=== PATIENT | female | born 1990 | race Two or more races ===

== ENCOUNTER 2017-10-06 13:34 | Emergency (ER) | payer SELFPAY ==
[2017-10-06] MEDS ORDERED: Ondansetron 4 MG/2 ML SDV IVPUSH ONE (14:06)
[2017-10-06] MEDS ORDERED: Sodium Chloride 0.9% 10 ML Syringe FLUSH PRN (14:06)
[2017-10-06] MEDS ORDERED: Sodium Chloride 0.9% 2.5 ML Syringe FLUSH PRN (14:06)
[2017-10-06] MEDS ORDERED: Ketorolac 30 MG/ML SDV IVPUSH ONE (14:06)
[2017-10-06] MEDS ORDERED: Sodium Chloride 0.9% 1,000 ML IV ONE (14:06)
--- NOTE | 2017-10-06 14:11 | EDM.PDOC ---
ED HPI GENERAL MEDICAL PROBLEM - General Chief Complaint: Fever Stated Complaint: FEVER,SORE THROAT AND VOMITING Time Seen by Provider: 10/06/17 13:44 - History of Present Illness INITIAL COMMENTS - FREE TEXT/NARRATIVE: HISTORY AND PHYSICAL: History of present illness: The patient is a 27-year-old female who presents with vague complaints over the last 3 days including a subjective fever last evening which responded to medications, nausea and vomiting with emesis several times yesterday and only once today, left ear pain and fullness feeling, sore throat, generalized malaise and fatigue. The patient does have any chest pain or shortness of breath and does not have any abdominal pain. Patient does say that she has had diarrhea, none today, but multiple times yesterday which was watery but not black or bloody. Patient did not take anything [id number] for the diarrhea but has had no episodes today. The patient says that she was in the [facility] visiting family for the last 1 month and returned on Tuesday and was jet lagged and tired and had to return to work Tuesday and has not had a chance to catch up with her sleep. She says that the entire time that she was on vacation she had no systemic problems or complaints and she has no ill contacts currently. Patient says she just finished her period and denies . She has no urinary complaints no skin rashes and no focal weakness or discomfort is a generalized statement. Review of systems: As per history of present illness and below otherwise all systems reviewed and negative. Past medical history: As per history of present illness and as reviewed below otherwise noncontributory. Surgical history: As per history of present illness and as reviewed below otherwise noncontributory. Social history: No reported history of drug or alcohol abuse. Family history: As per history of present illness and as reviewed below otherwise noncontributory. Physical exam: General: Well-developed well-nourished female who is nontoxic and vital signs are reviewed by me HEENT: Atraumatic, normocephalic, pupils reactive, negative for conjunctival pallor or scleral icterus, mucous membranes moist, throat clear of exudates but there is some posterior oral pharyngeal erythema without any swelling, uvula is midline, there is some anterior cervical adenopathy but no posterior adenopathy and no nuchal rigidity,, neck supple, nontender, trachea midline. TM on the right is within normal limits but the TM on the left shows small area of linear vertical perforation at the right lateral aspect approximately at 2 to 3:00. There is no debris or bleeding in the canal. There is no mastoid tenderness. Lungs: Clear to auscultation, breath sounds equal bilaterally, chest nontender. Heart: S1S2, regular rate and rhythm no overt murmurs Abdomen: Soft, nondistended, nontender. Negative for masses or hepatosplenomegaly. Negative for costovertebral tenderness. Pelvis: Stable nontender. Genitourinary: Deferred. Rectal: Deferred. Extremities: Atraumatic, negative for cords or calf pain. Neurovascular unremarkable. Neuro: Awake, alert, oriented. Cranial nerves II through XII unremarkable. Cerebellum unremarkable. Motor and sensory unremarkable throughout. Exam nonfocal. Diagnostics: CBC CMP magnesium level UA UCG rapid strep urine culture If the patient produced a stool I will send it to the lab for study Therapeutics: IV, IV fluids Zofran Toradol Patient has not produced any stool while in the ED. Patient is aware of all testing results and care plan for home including Zofran and Bentyl or her GI symptoms and amoxicillin for the perforated eardrum and pharyngitis. I stressed the need for hydration and follow-up Impression: Pharyngitis/cervical adenopathy, vomiting and diarrhea Small perforation of left tympanic membrane Definitive disposition and diagnosis as appropriate pending reevaluation and review of above. Ear Pain Score (Numeric/FACES): 9 - Related Data Allergies Allergy/AdvReac Type Severity Reaction Status Date / Time No Known Allergies Allergy Verified 10/06/17 13:48 Home Meds: Home Meds . [No Known Home Meds] 10/06/17 [History] Past Medical History - Past Health History Medical/Surgical History: Denies Medical/Surgical History Social & Family History - Family History Family Medical History: Noncontributory - Tobacco Use Smoking Status *Q: Never Smoker Second Hand Smoke Exposure: No - Caffeine Use Caffeine Use: Reports: Coffee, Soda - Recreational Drug Use Recreational Drug Use: No ED ROS GENERAL - Review of Systems Review Of Systems: ROS reveals no pertinent complaints other than HPI. ED EXAM, GENERAL - Physical Exam Exam: See Below (See dictation) Course - Vital Signs Last Recorded V/S: Last Vital Signs Temp 36.3 C 10/06/17 15:15 Pulse 62 10/06/17 15:15 Resp 14 10/06/17 15:15 BP 103/56 L 10/06/17 15:15 Pulse Ox 99 10/06/17 15:15 - Orders/Labs/Meds Orders: Active Orders 24 hr Category Date Time Status Communication Order [RC] STAT Care 10/06/17 14:05 Active CULTURE STREP A CONFIRMATION [RM] Stat Lab 10/06/17 14:20 Results CULTURE URINE [] Stat Lab 10/06/17 16:03 Ordered HCG QUALITATIVE,URINE [URCHEM] Stat Lab 10/06/17 15:27 Ordered STREP SCRN A RAPID W CULT CONF [RM] Stat Lab 10/06/17 14:20 Ordered UA W/MICROSCOPIC [URIN] Stat Lab 10/06/17 15:27 Ordered Sodium Chloride 0.9% [Saline Flush] Med 10/06/17 14:06 Active 10 ml FLUSH ASDIRECTED PRN Sodium Chloride 0.9% [Saline Flush] Med 10/06/17 14:06 Active 2.5 ml FLUSH ASDIRECTED PRN Saline Lock Insert [OM.PC] Stat Oth 10/06/17 14:03 Ordered Medication Orders Sodium Chloride (Saline Flush) 10 ml FLUSH ASDIRECTED PRN PRN Reason: Keep Vein Open Last Admin: 10/06/17 14:29 Dose: 10 ml Sodium Chloride (Saline Flush) 2.5 ml FLUSH ASDIRECTED PRN PRN Reason: Keep Vein Open Last Admin: 10/06/17 14:29 Dose: 2.5 ml Labs: Laboratory Tests 10/06/17 10/06/17 10/06/17 Range/Units 14:18 14:18 15:27 WBC 5.54 (4.0-11.0) K/uL RBC 4.86 (4.30-5.90) M/uL Hgb 12.9 (12.0-16.0) g/dL Hct 38.5 (36.0-46.0) % MCV 79.2 L (80.0-98.0) fL MCH 26.5 L (27.0-32.0) pg MCHC 33.5 (31.0-37.0) g/dL RDW Std Deviation 40.0 (28.0-62.0) fl RDW Coeff of Kaveh 14 (11.0-15.0) % Plt Count 263 (150-400) K/uL MPV 9.00 (7.40-12.00) fL Add Manual Diff YES Neutrophils % (Manual) 59 (48.0-80.0) % Lymphocytes % (Manual) 24 (16.0-40.0) % Monocytes % (Manual) 11 (0.0-15.0) % Eosinophils % (Manual) 5 (0.0-7.0) % Basophils % (Manual) 1 (0.0-1.5) % Nucleated RBC % 0.0 /100WBC Absolute Seg Neuts 3.3 (1.4-5.7) Lymphocytes # (Manual) 1.3 (0.6-2.4) Monocytes # (Manual) 0.6 (0.0-0.8) Eosinophils # (Manual) 0.3 (0.0-0.7) Basophils # (Manual) 0.1 (0.0-0.1) Nucleated RBCs # 0 K/uL Sodium 140 (136-145) mmol/L Potassium 3.8 (3.5-5.1) mmol/L Chloride 107 (98-107) mmol/L Carbon Dioxide 25.4 (21.0-32.0) mmol/L BUN 15 (7.0-18.0) mg/dL Creatinine 0.8 (0.6-1.0) mg/dL Est Cr Clr Drug Dosing 100.63 mL/min Estimated GFR (MDRD) > 60.0 ml/min Glucose 95 (74-106) mg/dL Calcium 8.2 L (8.5-10.1) mg/dL Magnesium 2.0 (1.5-2.0) mg/dL Total Bilirubin 0.3 (0.2-1.0) mg/dL AST 24 (15-37) IU/L ALT 28 (14-63) IU/L Alkaline Phosphatase 62 (46-116) U/L Total Protein 7.5 (6.4-8.2) g/dL Albumin 3.2 L (3.4-5.0) g/dL Globulin 4.3 H (2.0-3.5) g/dL Albumin/Globulin Ratio 0.7 L (1.3-2.8) Urine Color YELLOW Urine Appearance CLEAR Urine pH 6.0 (5.0-8.0) Ur Specific Marlin 1.025 (1.001-1.035) Urine Protein NEGATIVE (NEGATIVE) mg/dL Urine Glucose (UA) NEGATIVE (NEGATIVE) mg/dL Urine Ketones NEGATIVE (NEGATIVE) mg/dL Urine Occult Blood MODERATE (NEGATIVE) Urine Nitrite NEGATIVE (NEGATIVE) Urine Bilirubin NEGATIVE (NEGATIVE) Urine Urobilinogen 0.2 (<2.0) EU/dL Ur Leukocyte Esterase NEGATIVE (NEGATIVE) Urine RBC 3-6 (0-2/HPF) Urine WBC 6-8 (0-5/HPF) Ur Epithelial Cells MODERATE (NONE-FEW) Urine Bacteria 1+ H (NEGATIVE) Urine Mucus LIGHT (NONE-MOD) Urine HCG, Qual (NEGATIVE) 10/06/17 Range/Units 15:27 WBC (4.0-11.0) K/uL RBC (4.30-5.90) M/uL Hgb (12.0-16.0) g/dL Hct (36.0-46.0) % MCV (80.0-98.0) fL MCH (27.0-32.0) pg MCHC (31.0-37.0) g/dL RDW Std Deviation (28.0-62.0) fl RDW Coeff of Kaveh (11.0-15.0) % Plt Count (150-400) K/uL MPV (7.40-12.00) fL Add Manual Diff Neutrophils % (Manual) (48.0-80.0) % Lymphocytes % (Manual) (16.0-40.0) % Monocytes % (Manual) (0.0-15.0) % Eosinophils % (Manual) (0.0-7.0) % Basophils % (Manual) (0.0-1.5) % Nucleated RBC % /100WBC Absolute Seg Neuts (1.4-5.7) Lymphocytes # (Manual) (0.6-2.4) Monocytes # (Manual) (0.0-0.8) Eosinophils # (Manual) (0.0-0.7) Basophils # (Manual) (0.0-0.1) Nucleated RBCs # K/uL Sodium (136-145) mmol/L Potassium (3.5-5.1) mmol/L Chloride (98-107) mmol/L Carbon Dioxide (21.0-32.0) mmol/L BUN (7.0-18.0) mg/dL Creatinine (0.6-1.0) mg/dL Est Cr Clr Drug Dosing mL/min Estimated GFR (MDRD) ml/min Glucose (74-106) mg/dL Calcium (8.5-10.1) mg/dL Magnesium (1.5-2.0) mg/dL Total Bilirubin (0.2-1.0) mg/dL AST (15-37) IU/L ALT (14-63) IU/L Alkaline Phosphatase (46-116) U/L Total Protein (6.4-8.2) g/dL Albumin (3.4-5.0) g/dL Globulin (2.0-3.5) g/dL Albumin/Globulin Ratio (1.3-2.8) Urine Color Urine Appearance Urine pH (5.0-8.0) Ur Specific Marlin (1.001-1.035) Urine Protein (NEGATIVE) mg/dL Urine Glucose (UA) (NEGATIVE) mg/dL Urine Ketones (NEGATIVE) mg/dL Urine Occult Blood (NEGATIVE) Urine Nitrite (NEGATIVE) Urine Bilirubin (NEGATIVE) Urine Urobilinogen (<2.0) EU/dL Ur Leukocyte Esterase (NEGATIVE) Urine RBC (0-2/HPF) Urine WBC (0-5/HPF) Ur Epithelial Cells (NONE-FEW) Urine Bacteria (NEGATIVE) Urine Mucus (NONE-MOD) Urine HCG, Qual NEGATIVE (NEGATIVE) Meds: Medications Generic Name Dose Route Start Last Admin Trade Name Freq PRN Reason Stop Dose Admin Sodium Chloride 10 ml 10/06/17 14:10/06/17 14:29 Saline Flush FLUSH 10 ml ASDIRECTED PRN Administration Keep Vein Open Sodium Chloride 2.5 ml 10/06/17 14:06 10/06/17 14:29 Saline Flush FLUSH 2.5 ml ASDIRECTED PRN Administration Keep Vein Open Discontinued Medications Generic Name Dose Route Start Last Admin Trade Name Freq PRN Reason Stop Dose Admin Sodium Chloride 1,000 mls @ 999 mls/hr 10/06/17 14:06 10/06/17 14:28 Normal Saline IV 10/06/17 15:06 999 mls/hr STAT ONE Administration Ketorolac Tromethamine 30 mg 10/06/17 14:06 10/06/17 14:28 Toradol IVPUSH 10/06/17 14:07 30 mg ONETIME ONE Administration Ondansetron HCl 4 mg 10/06/17 14:06 10/06/17 14:28 Zofran IVPUSH 10/06/17 14:07 4 mg ONETIME ONE Administration Departure - Departure Time of Disposition: 16:04 Disposition: Home, Self-Care 01 Condition: Good Clinical Impression: Vomiting and diarrhea Pharyngitis Qualifiers: Pharyngitis/tonsillitis etiology: unspecified etiology Qualified Code(s): J02.9 - Acute pharyngitis, unspecified Perforated tympanic membrane Qualifiers: Laterality: left Qualified Code(s): H72.92 - Unspecified perforation of tympanic membrane, left ear - Discharge Information Referrals: PCP,None [Primary Care Provider] - Forms: ED Department Discharge Additional Instructions: The following information is given to patients seen in the emergency department who are being discharged to home. This information is to outline your options for follow-up care. We provide all patients seen in our emergency department with a follow-up referral. The need for follow-up, as well as the timing and circumstances, are variable depending upon the specifics of your emergency department visit. If you don't have a primary care physician on staff, we will provide you with a referral. We always advise you to contact your personal physician following an emergency department visit to inform them of the circumstance of the visit and for follow-up with them and/or the need for any referrals to a consulting specialist. The emergency department will also refer you to a specialist when appropriate. This referral assures that you have the opportunity for followup care with a specialist. All of these measure are taken in an effort to provide you with optimal care, which includes your followup. Under all circumstances we always encourage you to contact your private physician who remains a resource for coordinating your care. When calling for followup care, please make the office aware that this follow-up is from your recent emergency room visit. If for any reason you are refused follow-up, please contact the [facility] emergency department at and ask to speak to the emergency department charge nurse. [facility] Primary care- Internal Medicine and Family [place] [phone] Please use Zofran as needed for nausea and vomiting and take Bentyl for diarrhea and abdominal cramping. Please take antibiotics as directed until they' re finished. Allowing nothing to go into her left ear including any water or Q- tips or any other cleaning agents or fluids. Please call and follow-up with one of our providers in the clinic or your provider in the clinic for further care and evaluation of the next few days and return to ER as needed and as discussed. Use Tylenol or ibuprofen for any fevers and push hydration. - My Orders Last 24 Hours: My Active Orders 10/06/17 14:03 Saline Lock Insert [OM.PC] Stat 10/06/17 14:05 Communication Order [RC] STAT 10/06/17 14:06 Sodium Chloride 0.9% [Saline Flush] 10 ml FLUSH ASDIRECTED PRN Sodium Chloride 0.9% [Saline Flush] 2.5 ml FLUSH ASDIRECTED PRN 10/06/17 14:20 CULTURE STREP A CONFIRMATION [RM] Stat STREP SCRN A RAPID W CULT CONF [RM] Stat 10/06/17 15:27 HCG QUALITATIVE,URINE [URCHEM] Stat UA W/MICROSCOPIC [URIN] Stat 10/06/17 16:03 CULTURE URINE [RM] Stat - Assessment/Plan Last 24 Hours: My Active Orders 10/06/17 14:03 Saline Lock Insert [OM.PC] Stat 10/06/17 14:05 Communication Order [RC] STAT 10/06/17 14:06 Sodium Chloride 0.9% [Saline Flush] 10 ml FLUSH ASDIRECTED PRN Sodium Chloride 0.9% [Saline Flush] 2.5 ml FLUSH ASDIRECTED PRN 10/06/17 14:20 CULTURE STREP A CONFIRMATION [RM] Stat STREP SCRN A RAPID W CULT CONF [RM] Stat 10/06/17 15:27 HCG QUALITATIVE,URINE [URCHEM] Stat UA W/MICROSCOPIC [URIN] Stat 10/06/17 16:03 CULTURE URINE [RM] Stat
[2017-10-06 14:54] LABS: CHLORIDE,CL 107 mmol/L (98-107); SODIUM,NA 140 mmol/L (136-145)
== END 2017-10-06 16:24 | disposition home or self-care (01) ==
LOC: MW.ED 13:34 → MERGE 13:34 → MW.ED 16:24
DX: J02.9 Acute pharyngitis, unspecified (principal); R59.0 Localized enlarged lymph nodes; R19.7 Diarrhea, unspecified; R11.10 Vomiting, unspecified; H72.92 Unspecified perforation of tympanic membrane, left ear
CPT/HCPCS: 36415; 80053; 81001; 81025; 83735; 85025; 87081; 87086; 87880; 96361; 96374; 96375; 99284; J1885; J2405; J7040; 99283

== ENCOUNTER 2018-02-03 15:33 | Day surgery (SDC) | payer BC ==
[2018-02-03] MEDS: Lactated Ringers 1,000 ML IV SCH ×2 (16:00→21:15)
--- NOTE | 2018-02-03 16:33 | PCM.PREANE ---
Preanesthetic Assessment - Anesthesia/Transfusion/Family Hx Anesthesia History: No Prior Anesthesia Family History of Anesthesia Reaction: No Transfusion History: No Prior Transfusion(s) Intubation History: Unknown - Review of Systems General: No Symptoms Pulmonary: No Symptoms Cardiovascular: No Symptoms Gastrointestinal: No Symptoms Neurological: No Symptoms Other: Reports: None - Physical Assessment Height: 1.68 m Weight: 75.75 kg ASA Class: 1E Mental Status: Alert & Oriented x3 Airway Class: Mallampati = 1 Dentition: Reports: Normal Dentition Thyro-Mental Finger Breadths: 3 Mouth Opening Finger Breadths: 3 ROM/Head Extension: Full Lungs: Clear to Auscultation, Normal Respiratory Effort Cardiovascular: Regular Rate, Regular Rhythm - Lab Values: Laboratory Last Values Blood Type B POSITIVE 02/03/18 13:25 Antibody Screen NEGATIVE 02/03/18 13:25 Crossmatch See Detail 02/03/18 13:25 - Allergies Allergies/Adverse Reactions: Allergies Allergy/AdvReac Type Severity Reaction Status Date / Time No Known Allergies Allergy Verified 02/03/18 13:56 - Blood Blood Available: No - Anesthesia Plan Pre-Op Medication Ordered: None - Acknowledgements Anesthesia Type Planned: General Anesthesia Pt an Appropriate Candidate for the Planned Anesthesia: Yes Alternatives and Risks of Anesthesia Discussed w Pt/Guardian: Yes Pt/Guardian Understands and Agrees with Anesthesia Plan: Yes PreAnesthesia Questionnaire - Past Health History Medical/Surgical History: Denies Medical/Surgical History 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 [No Known Home Meds] 10/06/17 [History] - CURRENT (IN HOUSE) MEDS Current Meds: Current Medications Lactated Ringer's (Ringers, Lactated) 1,000 mls @ 100 mls/hr IV ASDIRECTED [facility]
[2018-02-03] MEDS ORDERED: fentaNYL 250 MCG/5 ML SDV ONE (16:43)
[2018-02-03] MEDS ORDERED: Ondansetron 4 MG/2 ML SDV ONE (16:43)
[2018-02-03] MEDS ORDERED: Propofol 200 MG/20 ML SDV ONE (16:43)
[2018-02-03] MEDS ORDERED: Midazolam 1 MG/ML 2 ML SDV ONE (16:43)
[2018-02-03] MEDS ORDERED: Glycopyrrolate 0.2 MG/ML SDV ONE (16:43)
[2018-02-03] MEDS ORDERED: Neostigmine Methylsulfate 1 MG/ML 5 ML Syringe ONE (16:43)
[2018-02-03] MEDS ORDERED: Lidocaine 2% 5 ML SDV ONE (16:43)
[2018-02-03] MEDS ORDERED: Rocuronium 10 MG/ML 10 ML Syringe ONE (16:43)
[2018-02-03] MEDS ORDERED: Vasopressin 20 Units/1 ML MDV ONE (16:55)
[2018-02-03] MEDS ORDERED: Bupivacaine 0.25% 10 ML SDV ONE (16:55)
[2018-02-03] MEDS: fentaNYL 100 MCG/2 ML SDV IVPUSH PRN ×4 (19:25→19:47)
--- NOTE | 2018-02-03 19:26 | PCM.OPNOTE ---
- General Post-Op/Procedure Note Date of Surgery/Procedure: 02/03/18 Operative Procedure(s): Laparoscopic left salphingectomy and lysis of adhesion Findings: Ectopic occupying about 2/3rd of the left tube Right tube was completely not visualized initially due to dense omental adhesion between omentum tube and uterus. Adhesions lysed with the aid of ligature device Pre Op Diagnosis: Left tubal ectopic Post-Op Diagnosis: Left tubal ectopic and. Pelvic adhesion Anesthesia Technique: General ET Tube Primary Surgeon: Staci Tan Secondary Surgeon: Juan C Espino Anesthesia Provider: Juan F Garza Pathology: Left fallopian tube with ectopic Fluid Replacement, Intraop: 1,100 EBL in mLs: 10 Complications: None Condition: Good
--- NOTE | 2018-02-03 20:44 | PCM48HPAN ---
Post Anesthesia Note - EVALUATION WITHIN 48HRS OF ANESTHETIC Vital Signs in Normal Range: Yes Patient Participated in Evaluation: Yes Respiratory Function Stable: Yes Airway Patent: Yes Cardiovascular Function Stable: Yes Hydration Status Stable: Yes Pain Control Satisfactory: Yes Nausea and Vomiting Control Satisfactory: Yes Mental Status Recovered: Yes Resp Rate: 18
--- NOTE | 2018-02-03 20:44 | PCM.POSTAN ---
POST ANESTHESIA ASSESSMENT - MENTAL STATUS Mental Status: Alert, Oriented - RESPIRATORY Respiratory Status: Respiratory Rate WNL, Airway Patent, O2 Saturation Stable - CARDIOVASCULAR CV Status: Pulse Rate WNL, Blood Pressure Stable - GASTROINTESTINAL GI Status: No Symptoms - PAIN Pain Score: 1 - POST OP HYDRATION Hydration Status: Adequate & Stable
[2018-02-03] MEDS ORDERED: Morphine 10 MG/ML Syringe IVPUSH ONE (20:45)
[2018-02-03] MEDS: Acetaminophen 1,000 MG in Premix Bag 1 BAG IV ONE ×2 (20:51→21:02)
[2018-02-03] MEDS ORDERED: Acetaminophen 1,000 MG in Premix Bag 1 BAG IV ONE (20:57)
--- NOTE | 2018-02-06 08:42 | OR ---
SURGEON: JESS ESPINOZA DATE OF PROCEDURE: 02/03/2018 PREOPERATIVE DIAGNOSIS: A 28-year-old G2, P0, at 6 weeks and 2 days ectopic . POSTOPERATIVE DIAGNOSIS: Left ectopic , tubal with pelvic adhesion. PROCEDURES: Laparoscopic left salpingectomy and lysis of adhesions. ESTIMATED BLOOD LOSS: 10 mL. IV FLUIDS: 1100. SPECIMEN: Left tubal ectopic . FINDINGS: Normal-sized anteverted uterus. There was a left ectopic occupying about two-thirds of the left fallopian tube. The right fallopian tube was initially not visible due to dense omental adhesion around the right cornua and fallopian tube, which was then released, normal ovaries were noted. BRIEF HISTORY ABOUT THE PATIENT: She is a 28-year-old G2, P0 who was complaining of spotting after a positive test. She was also complaining of intermittent abdominal cramping. She was 6 weeks and 2 days by last menstrual period. An ultrasound was done that showed left ectopic with crown rump measuring five weeks and positive cardiac activity. As a result, the patient was given treatment options due to include medical and surgical management. She was informed that surgical management is preferred because of the risk of medical management and the risk of rupture with conservative management. The patient opted for the procedure and decided to proceed. DESCRIPTION OF PROCEDURE: The patient was taken to the operating room, where general anesthesia was performed without difficulty. She was prepared and draped in the dorsal lithotomy position. Uterine manipulator was inserted with the aid of a speculum. A,5 mm incision was made on the umbilical fold and after Marcaine was given. The abdomen was entered via direct entry visualizing the layers of the abdominal wall . The entry was confirmed by low intraabdominal pressure. The pneumoperitoneum was then obtained up to 15 mmHg. Then, the left lower quadrant 5 mm incision was made after injection of 0.5% Marcaine ( incision made 2 fingerbreath medial and superior to the ASIS. The trocar was placed under direct visualization. Again, another suprapubic port was placed, two fingerbreadths above the pubic symphysis under direct visualization. The ectopic was noted and the tube was successfully cut and coagulated with the LigaSure device. Hemostasis was noted. Attention was then placed to the right pelvic sidewall where the omental adhesions and the tube were all matted together. The omental adhesion was removed. Hemostasis was maintained. The pelvic was then surveyed again and it was noted to be hemostatic. The liver appeared normal and the trocars were removed under direct visualization. All instrument and pad counts were correct x2. .The incision was closed with 4-0 Monocryl on the Steri- Strips and Tegaderm was placed. The patient was taken to the recovery room in stable condition. MIKE MART /[id number]
== END 2018-02-03 23:15 | disposition home or self-care (01) ==
LOC: MW.SDS 15:33 → MW.OB 19:18 → MW.SDS 23:15
PROVIDERS: ATTEND Obstetrics & Gynecology
DX: O00.102 Left tubal pregnancy without intrauterine pregnancy (principal); Z91.013 Allergy to seafood
CPT/HCPCS: 36415; 59151; J0131; J2250; J2270; J2405; J2704; J3010; J3490; J7120; 86850; 86900; 86901; 86920; 86921; 86922

== ENCOUNTER 2018-06-29 16:53 | Observation (INO) | payer BC ==
[2018-06-29] MEDS ORDERED: Sodium Chloride 0.9% 2.5 ML Syringe FLUSH PRN (16:55)
[2018-06-29] MEDS ORDERED: Sodium Chloride 0.9% 10 ML Syringe FLUSH PRN (16:55)
--- NOTE | 2018-06-29 17:02 | PCM.PREANE ---
Preanesthetic Assessment - Anesthesia/Transfusion/Family Hx Anesthesia History: Prior Anesthesia Without Reaction Family History of Anesthesia Reaction: No Transfusion History: No Prior Transfusion(s) Intubation History: Unknown - Review of Systems General: No Symptoms Pulmonary: No Symptoms Cardiovascular: No Symptoms Gastrointestinal: No Symptoms Neurological: No Symptoms Other: Reports: None - Physical Assessment NPO Status Date: 06/29/18 ASA Class: 2E Mental Status: Alert & Oriented x3 Airway Class: Mallampati = 2 Dentition: Reports: Normal Dentition Thyro-Mental Finger Breadths: 3 Mouth Opening Finger Breadths: 3 ROM/Head Extension: Full Lungs: Clear to Auscultation, Normal Respiratory Effort Cardiovascular: Regular Rate, Regular Rhythm - Allergies Allergies/Adverse Reactions: Allergies Allergy/AdvReac Type Severity Reaction Status Date / Time No Known Allergies Allergy Verified 02/03/18 13:56 - Acknowledgements Anesthesia Type Planned: General Anesthesia Pt an Appropriate Candidate for the Planned Anesthesia: Yes Alternatives and Risks of Anesthesia Discussed w Pt/Guardian: Yes Pt/Guardian Understands and Agrees with Anesthesia Plan: Yes PreAnesthesia Questionnaire - Past Health History Medical/Surgical History: Denies Medical/Surgical History HEENT History: Reports: None Cardiovascular History: Reports: None Respiratory History: Reports: None Gastrointestinal History: Reports: GERD Genitourinary History: Reports: None 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 ) ) LMP (Approximate): Musculoskeletal History: Reports: None Neurological History: Reports: None Psychiatric History: Reports: None Endocrine/Metabolic History: Reports: None Hematologic History: Reports: None Immunologic History: Reports: None Oncologic (Cancer) History: Reports: None Dermatologic History: Reports: None - Infectious Disease History Infectious Disease History: Reports: None - Past Surgical History Head Surgeries/Procedures: Reports: None Female Surgical History: Reports: Other (See Below) (2018 - Laparoscopy and tube excision for ectopic ) - HOME MEDS Home Medications: Home Meds Acetaminophen/oxyCODONE [Percocet 325-5 MG] 1 - 2 each PO Q6HR PRN 2 Days #10 tab 02/03/18 [Rx] - CURRENT (IN HOUSE) MEDS Current Meds: Current Medications Lactated Ringer's (Ringers, Lactated) 1,000 mls @ 125 mls/hr IV ASDIRECTED TRAMAINE Sodium Chloride (Saline Flush) 10 ml FLUSH ASDIRECTED PRN PRN Reason: Keep Vein Open Sodium Chloride (Saline Flush) 2.5 ml FLUSH ASDIRECTED PRN PRN Reason: Keep Vein Open
[2018-06-29] MEDS ORDERED: Scopolamine 1.5 MG Transdermal Patch TRDERM STA (17:11)
[2018-06-29] MEDS ORDERED: fentaNYL 100 MCG/2 ML SDV IVPUSH PRN ×3 (17:12→17:14)
[2018-06-29] MEDS ORDERED: Albuterol 0.083% 2.5 MG/3 ML Neb Soln NEB PRN (17:14)
[2018-06-29] MEDS ORDERED: Atropine 1 MG/ML SDV IVPUSH PRN ×2 (17:14)
[2018-06-29] MEDS ORDERED: EPINEPHrine 1 MG/ML SDV IVPUSH PRN (17:14)
[2018-06-29] MEDS ORDERED: Naloxone 0.4 MG/ML Syringe IVPUSH PRN (17:14)
[2018-06-29] MEDS ORDERED: 50% Dextrose in Water 50 ML Syringe IVPUSH PRN (17:14)
[2018-06-29] MEDS: Lactated Ringers 1,000 ML IV SCH ×2 (17:54→17:56)
[2018-06-29] MEDS ORDERED: Succinylcholine 200 MG/10 ML MDV ONE (17:57)
[2018-06-29] MEDS ORDERED: Rocuronium 10 MG/ML 10 ML Syringe ONE (17:57)
[2018-06-29] MEDS ORDERED: Midazolam 1 MG/ML 2 ML SDV ONE (17:57)
[2018-06-29] MEDS ORDERED: Ondansetron 4 MG/2 ML SDV ONE (17:57)
[2018-06-29] MEDS ORDERED: Propofol 200 MG/20 ML SDV ONE (17:57)
[2018-06-29] MEDS ORDERED: Lidocaine 2% 5 ML SDV ONE (17:57)
[2018-06-29] MEDS ORDERED: fentaNYL 250 MCG/5 ML SDV ONE (17:58)
[2018-06-29] MEDS ORDERED: Dexamethasone 4 MG/ML 5 ML MDV ONE (17:58)
[2018-06-29] MEDS ORDERED: Bupivacaine 0.25% 10 ML SDV ONE (18:38)
[2018-06-29] MEDS ORDERED: Vasopressin 20 Units/1 ML MDV ONE (18:42)
[2018-06-29] MEDS ORDERED: ePHEDrine 50 MG/ML SDV ONE (19:37)
[2018-06-29] MEDS ORDERED: Glycopyrrolate 0.2 MG/ML SDV ONE (19:40)
[2018-06-29] MEDS ORDERED: fentaNYL 100 MCG/2 ML SDV ONE ×3 (20:25→20:52)
[2018-06-29] MEDS ORDERED: HYDROmorphone 2 MG/ML Syringe ONE (20:26)
--- NOTE | 2018-06-29 21:35 | PCM.OPNOTE ---
- General Post-Op/Procedure Note Date of Surgery/Procedure: 06/29/18 Operative Procedure(s): Laparoscopy with right salpingectomy, evacuation of hemoperitoneum and lysis of adhensions Findings: Ruptured right tubal with hemoperitoneum. Omentum adherent to distal end of the right fallopian tube.Absent left fallopian tube. Normal ovaries bilaterally. Pre Op Diagnosis: Ruptured right ectopic Post-Op Diagnosis: Same Anesthesia Technique: General ET Tube Primary Surgeon: Elsa Bang Pathology: Right fallopian tube with ectopic Fluid Replacement, Intraop: 1,000 Output, Urine Amount: 400 EBL in mLs: 200 Complications: None Condition: Good Free Text/Narrative:: Intake & Output 06/29/18 06/29/18 06/29/18 06:59 14:59 22:59 Output Total 650 Balance -650
--- NOTE | 2018-06-29 21:37 | PCM.POSTAN ---
POST ANESTHESIA ASSESSMENT - MENTAL STATUS Mental Status: Alert, Oriented - VITAL SIGNS Pulse Rate: 76 SaO2: 96 Resp Rate: 16 Blood Pressure: 119/67 - RESPIRATORY Respiratory Status: Respiratory Rate WNL, Airway Patent, O2 Saturation Stable - CARDIOVASCULAR CV Status: Pulse Rate WNL, Blood Pressure Stable - GASTROINTESTINAL GI Status: No Symptoms - PAIN Pain Score: 0 - POST OP HYDRATION Hydration Status: Adequate & Stable
[2018-06-29] MEDS ORDERED: Acetaminophen/oxyCODONE 325-5 MG Tab PO PRN (21:48)
[2018-06-29] MEDS ORDERED: Promethazine 25 MG/ML SDV IM PRN (21:48)
[2018-06-29] MEDS ORDERED: Ketorolac 30 MG/ML SDV ONE (22:18)
[2018-06-30] MEDS ORDERED: Ketorolac 30 MG/ML SDV ONE (03:26)
[2018-06-30] MEDS: Ketorolac 15 MG/ML SDV IM SCH (07:04)
--- NOTE | 2018-06-30 07:31 | PCM48HPAN ---
Post Anesthesia Note - EVALUATION WITHIN 48HRS OF ANESTHETIC Vital Signs in Normal Range: Yes Patient Participated in Evaluation: No (Asleep and unawakened when talking with male at bedside) Respiratory Function Stable: Yes Airway Patent: Yes Cardiovascular Function Stable: Yes Hydration Status Stable: Yes Pain Control Satisfactory: Yes Nausea and Vomiting Control Satisfactory: Yes Mental Status Recovered: Yes Pulse Rate: 76 Resp Rate: 18 Blood Pressure: 119/67 - COMMENTS/OBSERVATIONS Free Text/Narrative:: Patient asleep and unawakened when visiting with male at bedside. Male states she is doing okay and has been sleeping.
--- NOTE | 2018-06-30 08:59 | OR ---
SURGEON: Elsa Bang MD DATE OF PROCEDURE: 06/29/2018 PREOPERATIVE DIAGNOSIS: Ruptured right tubal . POSTOPERATIVE DIAGNOSIS: Ruptured right tubal . PROCEDURE: Laparoscopic right salpingectomy, evacuation of hemoperitoneum, and lysis of adhesion. ANESTHESIA: General endotracheal. IV FLUIDS: 1000 mL. URINE OUTPUT: 400 mL. ESTIMATED BLOOD LOSS: Hemoperitoneum of 200 mL. COMPLICATIONS: None. DISPOSITION: Stable to recovery room. FINDINGS: Anteverted mobile uterus of approximately 6 week size. Bilateral grossly normal appearing ovaries. Absent left fallopian tube consistent with a history of prior left salpingectomy. Ruptured right ectopic with 200 mL of hemoperitoneum. Omentum adherent to the distal end of the right fallopian tube and attaching this part of the tube the cornua and the fimbrial end was adherent to the posterior uterine wall INDICATIONS: The patient is a 28-year-old, G3, P0, approximately 6 weeks by last menstrual period. Diagnosed with right tubal 2 weeks ago, received 2 doses of methotrexate for medical management. She responded well after the second dose with more than 30% drop in serum hCG. She presented today to the clinic with a sudden onset severe lower abdominal pain. Pelvic sonogram showed persistent complex right-sided mass located superiorly to the right ovary, but this time around, there was significant amount of moderate heterogeneous appearing fluid in both the adnexa and the pelvic cul-de-sac. The patient complained of very scanty bleeding. The findings were reviewed with the couple and based on the clinical and ultrasound findings, she was consented for laparoscopic salpingectomy. Surgical risks of bleeding, infection, and injury to surrounding organs, such as the bowel, bladder, blood vessels, or ureters were reviewed with the patient. Risk of anesthesia was also reviewed with the patient. She understood these risks and consented to proceed with the surgery with possible laparotomy as indicated. Blood type is B positive. Of note, this patient did have a left salpingectomy performed last year for a left ectopic/tubal , which had cardiac activity at the time of diagnosis. DESCRIPTION OF PROCEDURE: The patient was taken to the operating room, where induction of general anesthesia was performed without difficulty. After adequate level of anesthesia, she was placed in dorsolithotomy position, prepped and draped in the usual sterile fashion for laparoscopic surgery. Examination under anesthesia revealed anteverted 6-week size uterus. A bivalve speculum was placed into the vagina. The anterior lip of the cervix was grasped with an Allis clamp, and a ZUMI uterine manipulator was inserted into the uterus. The surgeon's gloves were then changed. Attention was turned to the abdomen where a 5 mm skin incision was made within the umbilical fold after the skin had been infiltrated with 0.5% Marcaine. A Veress needle was then placed into the abdominal cavity, while tenting the anterior abdominal wall. Opening pressure of 5 to 6 mmHg was noted, and the CO2 insufflation was performed until adequate pneumoperitoneum of 15 mmHg was achieved. The Veress needle was then removed, followed by insertion of 5 mm port and trocar. Entry into the peritoneal cavity was confirmed with a 5 mm scope. The aforementioned intraabdominal findings were noted. A 5 mm skin incision was made in the right lower quadrant, after the area had been infiltrated with 0.5% Marcaine, followed by insertion of a 5 mm port under direct visualization. Suction evacuation of the hemoperitoneum was performed. The right tubal was noted to encompass more than 2/3 of the length of the fallopian tube. The omentum was noted to be adherent to the distal end of the fallopian tube, attaching it to the right cornu, and also the fimbrial end was attached to the posterior uterine wall. These adhesions were then carefully released with the LigaSure device, and the edges of the omentum were found to be hemostatic. An additional port was then placed on to the left lower quadrant under direct visualization. Using a grasper, the right fallopian tube was then grasped at the fimbrial end and tented up and away from the pelvic sidewall, and a 5 mm LigaSure device was then used to perform a routine salpingectomy by clamping and cauterizing along the mesosalpinx with good hemostasis noted. This was continued until the right cornual end was reached, releasing the right fallopian tube with the ectopic encased in it. The left lower quadrant port was then removed, and a 12 mm port was inserted under direct visualization. Through this port, an Endobag was introduced into the abdominal cavity, and the tube was then placed into the Endobag and retrieved. Copious suction and irrigation of the pelvic cavity was performed. The operative site was evaluated and found to be completely hemostatic. Further irrigation was performed, and the area was then evaluated on the lower pressure and hemostasis was noted. The upper abdomen was surveyed and the liver looked normal. The gas was then released from the abdomen. The right and the left ports were removed under direct visualization, and the umbilical port was then removed. The skin incisions were closed with 4-0 Monocryl in subcuticular fashion. The patient was taken to the recovery room in stable condition. Sponge, needle, and instrument counts were correct at the end of the procedure. EPHRAIM / BARRON /[id number] MTDD
--- NOTE | 2018-06-30 09:12 | PCM.SURGPN ---
- General Info Date of Service: 06/30/18 POD#: 1 Post-Op Diagnosis: s/p right salpingectomy Admission Diagnosis/Problem: Ectopic without intrauterine Functional Status: Reports: Pain Controlled, Tolerating Diet, Ambulating, Urinating - Review of Systems General: Denies: Fever, Weakness HEENT: Denies: Headaches Pulmonary: Denies: Shortness of Breath, Pleuritic Chest Pain Cardiovascular: Denies: Chest Pain, Palpitations, Dyspnea on Exertion Gastrointestinal: Denies: Abdominal Pain Genitourinary: Denies: Dysuria, Retention - Patient Data Vitals - Most Recent: Last Vital Signs Temp 36.7 C 06/30/18 07:46 Pulse 68 06/30/18 07:46 Resp 18 06/30/18 07:46 BP 103/64 06/30/18 07:46 Pulse Ox 98 06/30/18 07:46 Weight - Most Recent: 171 lb 8 oz I&O - Last 24 Hours: Intake & Output 06/29/18 06/30/18 06/30/18 22:59 06:59 14:59 Intake Total 2300 Output Total 1700 Balance 600 Lab Results Last 24 Hrs: Laboratory Results - last 24 hr 06/29/18 06/29/18 Range/Units 17:16 17:16 WBC 9.28 (4.0-11.0) K/uL RBC 4.59 (4.30-5.90) M/uL Hgb 12.4 (12.0-16.0) g/dL Hct 36.7 (36.0-46.0) % MCV 80.0 (80.0-98.0) fL MCH 27.0 (27.0-32.0) pg MCHC 33.8 (31.0-37.0) g/dL RDW Std Deviation 40.0 (28.0-62.0) fl RDW Coeff of Kaveh 14 (11.0-15.0) % Plt Count 284 (150-400) K/uL MPV 8.90 (7.40-12.00) fL Nucleated RBC % 0.0 /100WBC Nucleated RBCs # 0 K/uL Blood Type B POSITIVE Antibody Screen NEGATIVE Med Orders - Current: Current Medications Albuterol (Proventil Neb Soln) 2.5 mg NEB ONETIME PRN PRN Reason: Wheezing Ketorolac Tromethamine (Toradol) 30 mg IM Q6H [facility] Last Admin: 06/30/18 07:04 Dose: Not Given Naloxone HCl (Narcan) 0.1 mg IVPUSH ASDIRECTED PRN PRN Reason: Respiratory Depression Oxycodone/Acetaminophen (Percocet 325-5 Mg) 1 tab PO Q4H PRN PRN Reason: Pain Promethazine HCl (Phenergan) 12.5 mg IM Q6H PRN PRN Reason: Nausea/Vomiting Sodium Chloride (Saline Flush) 10 ml FLUSH ASDIRECTED PRN PRN Reason: Keep Vein Open Sodium Chloride (Saline Flush) 2.5 ml FLUSH ASDIRECTED PRN PRN Reason: Keep Vein Open Discontinued Medications Atropine Sulfate (Atropine 1 Mg/Ml) 1 mg IVPUSH ASDIRECTED PRN PRN Reason: ACLS Guidelines Atropine Sulfate (Atropine 1 Mg/Ml) 0.5 mg IVPUSH ASDIRECTED PRN PRN Reason: Hypo-Perfusion Bupivacaine HCl (Sensorcaine-Mpf 0.25%) Confirm Administered Dose 10 ml .ROUTE .STK-MED ONE Stop: 06/29/18 18:39 Dexamethasone (Dexamethasone) Confirm Administered Dose 20 mg .ROUTE .STK-MED ONE Stop: 06/29/18 17:59 Dextrose/Water (Dextrose 50% In Water) 50 ml IVPUSH ASDIRECTED PRN PRN Reason: Hypoglycemia Ephedrine Sulfate (Ephedrine Sulfate) Confirm Administered Dose 50 mg .ROUTE .STK-MED ONE Stop: 06/29/18 19:38 Epinephrine HCl (Adrenalin) 1 mg IVPUSH ASDIRECTED PRN PRN Reason: ACLS Guidelines Fentanyl (Sublimaze) 50 mcg IVPUSH Q45M PRN PRN Reason: Pain (severe 7-10) Stop: 06/30/18 19:30 Last Admin: 06/29/18 17:45 Dose: 50 mcg Fentanyl (Sublimaze) 50 mcg IVPUSH Q5M PRN PRN Reason: Pain Fentanyl (Sublimaze) Confirm Administered Dose 250 mcg .ROUTE .STK-MED ONE Stop: 06/29/18 17:59 Fentanyl (Sublimaze) Confirm Administered Dose 100 mcg .ROUTE .STK-MED ONE Stop: 06/29/18 20:26 Fentanyl (Sublimaze) Confirm Administered Dose 100 mcg .ROUTE .STK-MED ONE Stop: 06/29/18 20:44 Fentanyl (Sublimaze) Confirm Administered Dose 100 mcg .ROUTE .[facility] ONE Stop: 06/29/18 20:53 Glycopyrrolate (Robinul) Confirm Administered Dose 0.2 mg .ROUTE .[facility] ONE Stop: 06/29/18 19:41 Hydromorphone HCl (Dilaudid) Confirm Administered Dose 2 mg .ROUTE .[facility] ONE Stop: 06/29/18 20:27 Lactated Ringer's (Ringers, Lactated) 1,000 mls @ 125 mls/hr IV ASDIRECTED TRAMAINE Last Admin: 06/29/18 17:56 Dose: 125 mls/hr Ketorolac Tromethamine (Toradol) Confirm Administered Dose 30 mg .ROUTE .[facility] ONE Stop: 06/29/18 22:19 Last Admin: 06/29/18 22:23 Dose: 30 mg Ketorolac Tromethamine (Toradol) Confirm Administered Dose 30 mg .ROUTE .[facility] ONE Stop: 06/30/18 03:27 Last Admin: 06/30/18 04:01 Dose: 30 mg Lidocaine (Xylocaine-Mpf 2%) Confirm Administered Dose 5 ml .ROUTE .[facility] ONE Stop: 06/29/18 17:58 Midazolam HCl (Versed 1 Mg/Ml) Confirm Administered Dose 2 mg .ROUTE .[facility] ONE Stop: 06/29/18 17:58 Ondansetron HCl (Zofran) Confirm Administered Dose 4 mg .ROUTE .[facility] ONE Stop: 06/29/18 17:58 Propofol (Diprivan 20 Ml) Confirm Administered Dose 200 mg .ROUTE .[facility] ONE Stop: 06/29/18 17:58 Rocuronium [place] (Zemuron) Confirm Administered Dose 100 mg .ROUTE .[facility] ONE Stop: 06/29/18 17:58 Scopolamine (Transderm-Scop) 1.5 mg TRDERM Q72H [facility] Stop: 06/29/18 17:12 Last Admin: 06/29/18 17:46 Dose: 1.5 mg Succinylcholine Chloride (Quelicin) Confirm Administered Dose 200 mg .ROUTE .ST -MED ONE Stop: 06/29/18 17:58 Vasopressin (Vasopressin) Confirm Administered Dose 20 units .ROUTE .STK-MED ONE Stop: 06/29/18 18:43 - Exam Wound/Incisions: Dressing Dry and Intact General: Alert, Oriented Lungs: Clear to Auscultation, Normal Respiratory Effort Cardiovascular: Regular Rate, Regular Rhythm GI/Abdominal Exam: Soft, Non-Tender Extremities: No Pedal Edema Psy/Mental Status: Alert, Normal Affect, Normal Mood - Problem List & Annotations (1) Status post laparoscopic procedure SNOMED Code(s): 414731943, 117210542, 572626840 Code(s): Z98.890 - OTHER SPECIFIED POSTPROCEDURAL STATES Status: Acute Current Visit: Yes (2) Ectopic SNOMED Code(s): 62350102 Code(s): O00.90 - UNSPECIFIED ECTOPIC WITHOUT INTRAUTERINE Status: Acute Current Visit: No Qualifiers: Location of ectopic : tubal Intrauterine status: without intrauterine Laterality: right Qualified Code(s): O00.101 - Right tubal without intrauterine - Problem List Review Problem List Initiated/Reviewed/Updated: Yes - My Orders Last 24 Hours: Active Orders 24 hr Category Date Time Status Patient Status [ADT] Routine ADT 06/29/18 21:48 Active Ambulate [RC] PER UNIT ROUTINE Care 06/29/18 21:54 Active Blood Glucose Check, Bedside [RC] PRN Care 06/29/18 17:14 Inactive Intake and Output [RC] PRN Care 06/29/18 21:48 Active Notify Provider Vital Signs [RC] ASDIRECTED Care 06/29/18 17:14 Active Oxygen Therapy [RC] PRN Care 06/29/18 17:14 Active RT Aerosol Therapy [RC] ASDIRECTED Care 06/29/18 17:14 Active RT Aerosol Therapy [RC] ASDIRECTED Care 06/29/18 17:14 Active Vital Signs [RC] PER UNIT ROUTINE Care 06/29/18 21:48 Active Regular Diet [DIET] Diet 06/30/18 Breakfast Active Acetaminophen/oxyCODONE [Percocet 325-5 MG] Med 06/29/18 21:48 Active 1 tab PO Q4H PRN Albuterol [Proventil Neb Soln] Med 06/29/18 17:14 Active 2.5 mg NEB ONETIME PRN Ketorolac [Toradol] Med 06/29/18 22:00 Active 30 mg IM Q6H Naloxone [Narcan] Med 06/29/18 17:14 Active 0.1 mg IVPUSH ASDIRECTED PRN Promethazine [Phenergan] Med 06/29/18 21:48 Active 12.5 mg IM Q6H PRN Sodium Chloride 0.9% [Saline Flush] Med 06/29/18 16:55 Active 10 ml FLUSH ASDIRECTED PRN Sodium Chloride 0.9% [Saline Flush] Med 06/29/18 16:55 Active 2.5 ml FLUSH ASDIRECTED PRN Peripheral IV Insertion Adult [OM.PC] Routine Oth 06/29/18 16:55 Ordered Resuscitation Status Routine Resus Stat 06/29/18 21:48 Ordered Medication Orders Albuterol (Proventil Neb Soln) 2.5 mg NEB ONETIME PRN PRN Reason: Wheezing Ketorolac Tromethamine (Toradol) 30 mg IM Q6H [facility] Last Admin: 06/30/18 07:04 Dose: Not Given Admin: 06/30/18 07:04 Dose: Not Given Naloxone HCl (Narcan) 0.1 mg IVPUSH ASDIRECTED PRN PRN Reason: Respiratory Depression Oxycodone/Acetaminophen (Percocet 325-5 Mg) 1 tab PO Q4H PRN PRN Reason: Pain Promethazine HCl (Phenergan) 12.5 mg IM Q6H PRN PRN Reason: Nausea/Vomiting Sodium Chloride (Saline Flush) 10 ml FLUSH ASDIRECTED PRN PRN Reason: Keep Vein Open Sodium Chloride (Saline Flush) 2.5 ml FLUSH ASDIRECTED PRN PRN Reason: Keep Vein Open - Assessment Assessment (Free Text/Narrative):: POD#1 s/p laparoscopic right salpingectomy, doing well May be discharged today - Plan Plan (Free Text/Narrative):: Discharge instructions reviewed Nothing in the vagina for 2 weeks Bleeding and infection precautions reviewed Follow up in 2 weeks
[2018-06-30] MEDS ORDERED: Ketorolac 30 MG/ML SDV IM SCH (09:39)
== END 2018-06-30 10:30 | disposition home or self-care (01) ==
LOC: EDSTATUS 16:53 → MW.SDS 16:53 → MW.OB 22:54
PROVIDERS: ADMIT Obstetrics & Gynecology; ATTEND Obstetrics & Gynecology
DX: O00.101 Right tubal pregnancy without intrauterine pregnancy (principal); Z90.79 Acquired absence of other genital organ(s); Z79.899 Other long term (current) drug therapy
CPT/HCPCS: 36415; 59151; 85027; 86850; 86900; 86901; A9270; G0378; J0330; J1100; J1170; J1885; J2001; J2250; J2405; J2704; J3010; J3490; J7120

== ENCOUNTER 2018-08-29 21:46 | Emergency (ER) | payer BC ==
[2018-08-29] MEDS ORDERED: Sodium Chloride 0.9% 1,000 ML IV ONE (22:47)
[2018-08-29] MEDS ORDERED: Ondansetron 4 MG/2 ML SDV IVPUSH ONE (22:47)
--- NOTE | 2018-08-29 22:50 | EDM.PDOC ---
ED HPI GENERAL MEDICAL PROBLEM - General Chief Complaint: Gastrointestinal Problem Stated Complaint: NONSTOP DIARRHEA Time Seen by Provider: 08/29/18 22:31 - History of Present Illness INITIAL COMMENTS - FREE TEXT/NARRATIVE: HISTORY AND PHYSICAL: History of present illness: Patient's 28-year-old female presents with return of vomiting diarrhea 2 days no fever no chills no other complaints she has had no sick contacts. She had no vaginal discharge or irregular bleeding and denies Review of systems: As per history of present illness and below otherwise all systems reviewed and negative. Past medical history: As per history of present illness and as reviewed below otherwise noncontributory. Surgical history: As per history of present illness and as reviewed below otherwise noncontributory. Social history: No reported history of drug or alcohol abuse. Family history: As per history of present illness and as reviewed below otherwise noncontributory. Physical exam: HEENT: Atraumatic, normocephalic, pupils reactive, negative for conjunctival pallor or scleral icterus, mucous membranes dry, throat clear, neck supple, nontender, trachea midline. Lungs: Clear to auscultation, breath sounds equal bilaterally, chest nontender. Heart: S1S2, regular, negative for clicks, rubs, or JVD. Abdomen: Soft, nondistended, nontender. Negative for masses or hepatosplenomegaly. Negative for costovertebral tenderness. Pelvis: Stable nontender. Genitourinary: Deferred. Rectal: Deferred. Extremities: Atraumatic, negative for cords or calf pain. Neurovascular unremarkable. Neuro: Awake, alert, oriented. Cranial nerves II through XII unremarkable. Cerebellum unremarkable. Motor and sensory unremarkable throughout. Exam nonfocal. Diagnostics: CBC CMP stool for C&S O&P and C. difficile UA hCG Therapeutics: Saline 1 L bolus Zofran 4 mg IV Impression: #1 gastroenteritis #2 dehydration Definitive disposition and diagnosis as appropriate pending reevaluation and review of above. Upper Abdomen Pain Score (Numeric/FACES): 6 - Related Data Allergies Allergy/AdvReac Type Severity Reaction Status Date / Time shrimp Allergy Hives Verified 08/29/18 22:37 Home Meds: Home Meds . [No Known Home Meds] 08/29/18 [History] Past Medical History - Past Health History Medical/Surgical History: Denies Medical/Surgical History HEENT History: Reports: None Cardiovascular History: Reports: None Respiratory History: Reports: None Gastrointestinal History: Reports: GERD Genitourinary History: Reports: None MALE MODEL History: Reports: , Other (See Below) Other MALE MODEL History: ectopic Musculoskeletal History: Reports: None Neurological History: Reports: None Psychiatric History: Reports: None Endocrine/Metabolic History: Reports: None Hematologic History: Reports: None Immunologic History: Reports: None Oncologic (Cancer) History: Reports: None Dermatologic History: Reports: None - Infectious Disease History Infectious Disease History: Reports: None - Past Surgical History Head Surgeries/Procedures: Reports: None Female Surgical History: Reports: Other (See Below) Social & Family History - Family History Family Medical History: Noncontributory Respiratory: Reports: None GI: Reports: None : Reports: None OBGYN: Reports: None Musculoskeletal: Reports: None Psychiatric: Reports: None Endocrine/Metabolic: Reports: Diabetes, type II Hematologic: Reports: None Oncologic: Reports: Colon - Tobacco Use Smoking Status *Q: Never Smoker - Caffeine Use Caffeine Use: Reports: Coffee, Soda - Recreational Drug Use Recreational Drug Use: No ED ROS GENERAL - Review of Systems Review Of Systems: ROS reveals no pertinent complaints other than HPI. ED EXAM, GENERAL - Physical Exam Exam: See Below (See dictation) Course - Vital Signs Last Recorded V/S: Last Vital Signs Temp 36.7 C 08/29/18 22:35 Pulse 85 08/29/18 22:35 Resp BP 110/86 08/29/18 22:35 Pulse Ox 98 08/29/18 22:35 - Orders/Labs/Meds Orders: Active Orders 24 hr Category Date Time Status CBC WITH AUTO DIFF [HEME] Stat Lab 08/29/18 22:46 Ordered CDIFF TOX A+B [OP] Stat Lab 08/29/18 22:47 Ordered COMPREHENSIVE METABOLIC PN,CMP [CHEM] Stat Lab 08/29/18 22:46 Ordered CULTURE STOOL + CAMPY+SHIGATOX [RM] Stat Lab 08/29/18 22:47 Ordered HCG QUALITATIVE,SERUM [CHEM] Stat Lab 08/29/18 22:46 Ordered UA RFX ABDIFATAH AND CULT IF INDIC [URIN] Stat Lab 08/29/18 22:47 Ordered Ondansetron [Zofran] Med 08/29/18 22:47 Once 4 mg IVPUSH ONETIME ONE Sodium Chloride 0.9% [Normal Saline] 1,000 ml Med 08/29/18 22:47 Active IV STAT Isolation [COMM] Stat Oth 08/29/18 22:47 Ordered Departure - Departure Time of Disposition: 22:49 Disposition: Home, Self-Care 01 Condition: Good Clinical Impression: Gastroenteritis, Dehydration - Discharge Information Referrals: PCP,None [Primary Care Provider] - Additional Instructions: The following information is given to patients seen in the emergency department who are being discharged to home. This information is to outline your options for follow-up care. We provide all patients seen in our emergency department with a follow-up referral. The need for follow-up, as well as the timing and circumstances, are variable depending upon the specifics of your emergency department visit. If you don't have a primary care physician on staff, we will provide you with a referral. We always advise you to contact your personal physician following an emergency department visit to inform them of the circumstance of the visit and for follow-up with them and/or the need for any referrals to a consulting specialist. The emergency department will also refer you to a specialist when appropriate. This referral assures that you have the opportunity for followup care with a specialist. All of these measure are taken in an effort to provide you with optimal care, which includes your followup. Under all circumstances we always encourage you to contact your private physician who remains a resource for coordinating your care. When calling for followup care, please make the office aware that this follow-up is from your recent emergency room visit. If for any reason you are refused follow-up, please contact the [facility] emergency department at and asked to speak to the emergency department charge nurse. Push fluids clear liquids as directed avoid dairy 72 hours follow private medical doctor as needed as discussed and return as needed as discussed - My Orders Last 24 Hours: My Active Orders 08/29/18 22:46 CBC WITH AUTO DIFF [HEME] Stat COMPREHENSIVE METABOLIC PN,CMP [CHEM] Stat HCG QUALITATIVE,SERUM [CHEM] Stat 08/29/18 22:47 CDIFF TOX A+B [OP] Stat CULTURE STOOL + CAMPY+SHIGATOX [RM] Stat UA RFX ABDIFATAH AND CULT IF INDIC [URIN] Stat Ondansetron [Zofran] 4 mg IVPUSH ONETIME ONE Sodium Chloride 0.9% [Normal Saline] 1,000 ml IV STAT Isolation [COMM] Stat - Assessment/Plan Last 24 Hours: My Active Orders 08/29/18 22:46 CBC WITH AUTO DIFF [HEME] Stat COMPREHENSIVE METABOLIC PN,CMP [CHEM] Stat HCG QUALITATIVE,SERUM [CHEM] Stat 08/29/18 22:47 CDIFF TOX A+B [OP] Stat CULTURE STOOL + CAMPY+SHIGATOX [RM] Stat UA RFX ABDIFATAH AND CULT IF INDIC [URIN] Stat Ondansetron [Zofran] 4 mg IVPUSH ONETIME ONE Sodium Chloride 0.9% [Normal Saline] 1,000 ml IV STAT Isolation [COMM] Stat
[2018-08-29 23:49] LABS: CHLORIDE,CL 109 mmol/L (98-107); SODIUM,NA 141 mmol/L (136-145)
== END 2018-08-30 00:26 | disposition home or self-care (01) ==
LOC: MW.ED 21:46
DX: K52.9 Noninfective gastroenteritis and colitis, unspecified (principal); E86.0 Dehydration; Z91.013 Allergy to seafood
CPT/HCPCS: 36415; 80053; 84703; 85025; 96361; 96374; 99284; J2405; J7040; 99283